=== PATIENT | female | born 1980 | race Two or more races ===

== ENCOUNTER 2022-11-22 14:40 | Emergency (ER) | payer MEDICAID ==
[~2022-11-22] VITALS: Ht 160 cm; Wt 66.4 kg
[2022-11-22] MEDS ORDERED: ACETAMINOPHEN 500 MG TABLET PO ONE (15:00)
[2022-11-22] MEDS ORDERED: IBUPROFEN 600 MG TABLET PO ONE (15:00)
[2022-11-22] MEDS ORDERED: P EP PO (15:53)
[2022-11-22] MEDS ORDERED: IBUP-1554 PO (15:53)
[2022-11-22] MEDS ORDERED: ACET-66 PO (15:53)
[2022-11-22] MEDS ORDERED: NAPH15DR75 OU (15:53)
[2022-11-22 16:15] VITALS: BP 141/92
== END 2022-11-22 16:27 | disposition home or self-care (01) ==
LOC: EMS 14:51
DX: H10.11 Acute atopic conjunctivitis, right eye (principal); R51.9 Headache, unspecified
CPT/HCPCS: 82962; 99283